=== PATIENT | male | born 2000 | race Caucasian/White ===

== ENCOUNTER 2021-12-14 19:51 | Emergency (ER) | payer BC, SELFPAY ==
[~2021-12-14] VITALS: Ht 185.4 cm; Wt 68.0 kg
[2021-12-14 20:00] VITALS: BP_SYST 118
--- NOTE | 2021-12-14 20:00 | NUR ---
Patient to ER bed 5 for evaluation. Report given to FRANCIS Villarreal
--- NOTE | 2021-12-14 20:15 | NUR ---
ER at bedside examining patient.
[2021-12-14] MEDS ORDERED: HYDR-3921 PO (20:38)
--- NOTE | 2021-12-14 20:48 | NUR ---
Patient given written and verbal discharge instructions and verbalizes understanding. ER MD discussed with patient the results and treatment provided. Patient in stable condition. ID arm band removed. Rx of given. Patient educated on pain management and to follow up with PMD. Pain Scale . patient given medication for pain, patient understand to take pain medication as directed Opportunity for questions provided and answered. Medication side effect fact sheet provided.
[2021-12-14 21:07] VITALS: BP_SYST 118
== END 2021-12-14 21:07 | disposition home or self-care (01) ==
LOC: SED 19:51
DX: S89.92XA Unspecified injury of left lower leg, initial encounter (principal); Z88.0 Allergy status to penicillin; X50.1XXA Overexertion from prolonged static or awkward postures, initial encounter; Y93.89 Activity, other specified; Y92.89 Other specified places as the place of occurrence of the external cause; Y99.8 Other external cause status
CPT/HCPCS: 99283

== ENCOUNTER 2021-12-19 17:36 | Emergency (ER) | payer BC, SELFPAY ==
[~2021-12-19] VITALS: Ht 185.4 cm; Wt 68.0 kg
[~2021-12-19 17:36] MED LIST: HYDR-3921 PO
--- NOTE | 2021-12-19 17:40 | NUR ---
Triaged and placed in room 8.
--- NOTE | 2021-12-19 17:41 | NUR ---
Pt ambulatory (with crutches) to room with family member. Awake, alert and oriented x 3. Sustained fall 1 week ago and is pending surgery re "tears" to the L knee. Today is reporting cool temp and numbness to L foot. Pedal pulse intact. Awaiting MD klein. Addendum: 12/19/21 at 1748 by [email or web address] *Knee immobilizer in place to L knee upon arrival
[2021-12-19 17:42] VITALS: BP_SYST 122
--- NOTE | 2021-12-19 17:50 | NUR ---
Dr Mcnamara to bedside to assess patient
--- NOTE | 2021-12-19 18:35 | NUR ---
Pt transported to ultrasound via wheelchair
--- NOTE | 2021-12-19 19:04 | NUR ---
Report given to Isra BLANCO to assume care of patient
--- NOTE | 2021-12-19 20:18 | NUR ---
Pt remains in Radiology
--- NOTE | 2021-12-19 21:11 | NUR ---
Pt Back from Radiology in stable condition, well tolerated
[2021-12-19 21:25] VITALS: BP_SYST 122
--- NOTE | 2021-12-19 21:25 | NUR ---
Patient given written and verbal discharge instructions and verbalizes understanding. ER MD discussed with patient the results and treatment provided. Patient in stable condition. ID arm band removed. Patient educated on pain management and to follow up with PMD. Pain Scale 0/10 Opportunity for questions provided and answered.
== END 2021-12-19 21:25 | disposition home or self-care (01) ==
LOC: SED 17:36
DX: R20.0 Anesthesia of skin (principal); M25.462 Effusion, left knee; M79.672 Pain in left foot
CPT/HCPCS: 93923; 99284

== ENCOUNTER 2021-12-20 10:21 | Emergency (ER) | payer BC, SELFPAY ==
[~2021-12-20] VITALS: Ht 185.4 cm; Wt 68.0 kg
[2021-12-20 10:30] VITALS: BP_SYST 108
--- NOTE | 2021-12-20 10:30 | NUR ---
Pt to bed 4 for evaluation.
--- NOTE | 2021-12-20 10:50 | NUR ---
21 years old male alert, oriented x4 presents to er with knee pain csm good no swelling Dr Dang at bedside.
[2021-12-20] MEDS ORDERED: IOHEXOL 350 mgI/mL, 150 ML INFUS..BTL IV ONE (10:58)
--- NOTE | 2021-12-20 11:15 | NUR ---
consent signed for CTA.
[2021-12-20 12:04] LABS: CALCIUM 9.2 mg/dL (8.4-11.0); CREATININE 0.93 mg/dL (0.55-1.30); POTASSIUM 3.8 mmol/L (3.5-5.1)
[2021-12-20 12:11] LABS: ALBUMIN 4.2 g/dL (3.4-4.8); BASOPHILS # (AUTO) 0.1 K/uL (0.0-0.2); BASOPHILS % (AUTO) 1.4 % (0.0-2.0); EOSINOPHILS # (AUTO) 0.1 K/uL (0.0-0.4); EOSINOPHILS % (AUTO) 2.9 % (0.0-4.0); HEMATOCRIT 44.9 % (36-54); HEMOGLOBIN 15.1 g/dL (14.0-18.0); LYMPHOCYTES # (AUTO) 1.1 K/uL (1.0-5.5); LYMPHOCYTES % (AUTO) 25.4 % (20.5-51.5); MEAN CORPUSCULAR HEMOGLOBIN 30 pg (27-31); MEAN CORPUSCULAR HGB CONC 34 % (32-36); MEAN CORPUSCULAR VOLUME 90 fL (79.0-98.0); MONOCYTES # (AUTO) 0.3 K/uL (0.0-1.0); MONOCYTES % (AUTO) 7.9 % (1.7-9.3); NEUTROPHILS # (AUTO) 2.7 K/uL (1.8-7.7); NEUTROPHILS % (AUTO) 62.4 % (40.0-70.0); PLATELET COUNT (AUTO) 250 K/uL (130-430); RED CELL DISTRIBUTION WIDTH 12.6 % (9.0-15.0); TOTAL BILIRUBIN 0.6 mg/dL (0.0-1.0); WHITE BLOOD COUNT (AUTO) 4.4 K/uL (4.8-10.8)
[2021-12-20 13:00] VITALS: BP_SYST 118
--- NOTE | 2021-12-20 13:03 | NUR ---
Patient given written and verbal discharge instructions and verbalizes understanding. ER MD discussed with patient the results and treatment provided. Patient in stable condition. ID arm band removed. IV catheter removed intact and dressing applied, no active bleeding. Patient educated on pain management and to follow up with PMD. Pain Scale . Opportunity for questions provided and answered. Medication side effect fact sheet provided.
--- NOTE | 2021-12-20 13:03 | NUR ---
patient alert, oriented x4 condition stable d/c home with instructions after care reviewed understood.
== END 2021-12-20 13:00 | disposition home or self-care (01) ==
LOC: SED 10:21
DX: S83.412A Sprain of medial collateral ligament of left knee, initial encounter (principal); S83.512A Sprain of anterior cruciate ligament of left knee, initial encounter; Z88.0 Allergy status to penicillin; Z79.899 Other long term (current) drug therapy; W17.2XXA Fall into hole, initial encounter; Y93.89 Activity, other specified; Y92.89 Other specified places as the place of occurrence of the external cause; Y99.8 Other external cause status
CPT/HCPCS: 36415; 73706; 76376; 80053; 85025; 99285; Q9967